=== PATIENT | female | born 1995 | race Caucasian/White ===

== ENCOUNTER 2022-06-09 20:08 | Emergency (ER) | payer BC ==
[~2022-06-09] VITALS: Ht 157.5 cm; Wt 47.6 kg
--- NOTE | 2022-06-09 21:47 | NUR ---
BIB BF FOR L WRIST LACERATION. UPDATED TDAP. DENIED SI. PT A/OX3. TOLERATING R/A WELL WITH NO RESP DISTRESS. SAFETY MEASURES IN PLACE.
[2022-06-09] MEDS ORDERED: LIDOCAINE 1%-EPI 1:100,000 20 ML VIAL ONE (22:08)
--- NOTE | 2022-06-09 22:13 | NUR ---
EMT AT PT'S BEDSIDE FOR LAC WOUND CARE
--- NOTE | 2022-06-09 22:35 | NUR ---
DR SANCHEZ AT BED SIDE FOR LAC REPAIR
--- NOTE | 2022-06-09 22:45 | NUR ---
Patient discharged to home in stable condition. Written and verbal after care instructions given. Patient verbalizes understanding of instruction.
[2022-06-09 22:46] VITALS: BP 131/91
== END 2022-06-09 22:46 | disposition home or self-care (01) ==
LOC: ER 20:09
DX: S61.512A Laceration without foreign body of left wrist, initial encounter (principal); F17.210 Nicotine dependence, cigarettes, uncomplicated; W26.0XXA Contact with knife, initial encounter; Y93.89 Activity, other specified; Y92.89 Other specified places as the place of occurrence of the external cause; Y99.8 Other external cause status
CPT/HCPCS: 99282; 99406; 12001; A6403; J3490